=== PATIENT | female | born 1990 | race Caucasian/White ===

== ENCOUNTER 2019-03-14 15:03 | Emergency (ER) | payer SELFPAY ==
[~2019-03-14] VITALS: Ht 154.9 cm; Wt 54.4 kg
--- NOTE | 2019-03-14 15:04 | NUR ---
PT BROUGHT IN BLS TO ER BED 03
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
[2019-03-14 15:07] VITALS: BP 137/88
[2019-03-14 15:08] VITALS: BP 137/88
--- NOTE | 2019-03-14 15:42 | NUR ---
PATIENT LEFT WITHOUT BEING SEEN BY DR. WYNN. NO FURTHER CARE PROVIDED FOR PATIENT.
== END 2019-03-14 15:42 | disposition left against medical advice (07) ==
LOC: MED 15:03
DX: R07.9 Chest pain, unspecified (principal); Z53.21 Procedure and treatment not carried out due to patient leaving prior to being seen by health care provider
CPT/HCPCS: 81002; 81025; 93005; 99283